=== PATIENT | male | born 1985 ===

== ENCOUNTER 2019-09-26 04:04 | Emergency (ER) | payer SELFPAY ==
[~2019-09-26] VITALS: Ht 177.8 cm; Wt 74.3 kg
[2019-09-26 04:08] VITALS: BP 134/91
--- NOTE | 2019-09-26 04:28 | NUR ---
PT REPORTS HITTING HEAD ON NIGHTSTAND TONIGHT AFTER FALLING OFF BED. DENIES LOC, PER PT'S FRIEND SOME DIFFICULTY WITH MEMORY SINCE HITTING HEAD. PLACED CARDIAC AND VITALS SIGNS MONITORS. SAFETY FALL PRECAUTIONS IN PLACE, CALL LIGHT GIVEN TO PT, FRIEND AT BEDSIDE.
[2019-09-26] MEDS ORDERED: ALPR0.5T7 PO (04:45)
--- NOTE | 2019-09-26 04:50 | NUR ---
PROVIDER AT BEDSIDE FOR EVAL.
[2019-09-26] MEDS ORDERED: DIPH,PERTUSS(ACELL),TET VAC/PF 0.5 ML IM-VACC ONE (05:30)
== END 2019-09-26 07:21 | disposition left against medical advice (07) ==
LOC: ED 07:16
DX: S09.90XA Unspecified injury of head, initial encounter (principal); W22.8XXA Striking against or struck by other objects, initial encounter; Y93.89 Activity, other specified; Y92.098 Other place in other non-institutional residence as the place of occurrence of the external cause; Y99.8 Other external cause status
CPT/HCPCS: 99282